=== PATIENT | female | born 1990 ===

== ENCOUNTER 2019-03-21 05:15 | Inpatient (IN) | payer OTHER ==
[2019-03-21 07:11] LABS: BASO % 0.2 % (0-2.0); EOS % 0.1 % (0-4.5); HEMATOCRIT 34.5 % (32.4-45.2); HEMOGLOBIN 11.5 GM/dL (10.7-15.3); LYMPH % 11.8 % (8-40); MCH 29.9 pg (25.7-33.7); MCHC 33.4 g/dl (32.0-36.0); MEAN CELL VOLUME 89.6 fl (80-96); MEAN PLT VOLUME 9.7 fl (7.5-11.1); MONO % 4.8 % (3.8-10.2); NEUT % 83.1 % (42.8-82.8); PLATELET COUNT 271 K/MM3 (134-434); RBC 3.86 M/mm3 (3.60-5.2); WHITE BLOOD COUNT 13.5 K/mm3 (4.0-10.0)
[2019-03-21 07:25] LABS: INR 0.92 (0.83-1.09); PROTHROMBIN TIME (PATIENT) 10.8 SEC (9.7-13.0)
[2019-03-21 07:28] LABS: ACTIVATED PTT 28.9 SECONDS (25.2-36.5)
[2019-03-21 07:29] VITALS: BMI 24.9
[2019-03-21 08:15] LABS: BLOOD UREA NITROGEN 8.5 mg/dL (7-18); CALCIUM 8.8 mg/dL (8.5-10.1); CREATININE 0.5 mg/dL (0.55-1.3); POTASSIUM 4.2 mmol/L (3.5-5.1)
--- NOTE | 2019-03-21 08:39 | HP ---
Past Medical History - Primary Care Physician PCP:: Miguel Akers - Admission Chief Complaint: 39 weeks , labor History of Present Illness: 29 yo f g 1 p0000 39 weeks, care in [facility] care , no complication c/o contraction, no rom, no bleeding, no fever GBS negative History Source: Patient Limitations to Obtaining History: No Limitations - Past Medical History ...: 1 ...Para: 0 ...Term: 0 ...: 0 ...Spon : 0 ...Induced : 0 ...Multiple Gestation: 0 ...LMP: 05/19/18 ...EDC by Dates: 02/23/19 ...EDC by Sono: 03/23/19 - Past Surgical History Hx Myomectomy: No Hx Transabdominal Cerclage: No - Smoking History Smoking history: Never smoked Have you smoked in the past 12 months: No - Alcohol/Substance Use Hx Alcohol Use: No History of Substance Use: reports: None - Social History Usual Living Arrangement: Yes: With Spouse History of Recent Travel: No Home Medications - Allergies Allergies/Adverse Reactions: Allergies Allergy/AdvReac Type Severity Reaction Status Date / Time No Known Allergies Allergy Verified 03/21/19 07:48 - Home Medications Home Medications: Ambulatory Orders Iron 325 mg PO BID 03/21/19 Pnv 29-1 Tablet 1 tab PO DAILY 03/21/19 Review of Systems - Review of Systems Constitutional: reports: No Symptoms Eyes: reports: No Symptoms HENT: reports: No Symptoms Neck: reports: No Symptoms Cardiovascular: reports: No Symptoms Respiratory: reports: No Symptoms Gastrointestinal: reports: No Symptoms Genitourinary: reports: No Symptoms Breasts: reports: No Symptoms Reported Musculoskeletal: reports: No Symptoms Integumentary: reports: No Symptoms Neurological: reports: No Symptoms Endocrine: reports: No Symptoms Hematology/Lymphatic: reports: No Symptoms Psychiatric: reports: No Symptoms Physical Exam - Maternity Vital Signs: Vital Signs Temperature 97.9 F 03/21/19 06:10 Pulse Rate 89 03/21/19 06:10 Respiratory Rate 20 03/21/19 06:10 Blood Pressure 107/66 03/21/19 06:10 O2 Sat by Pulse Oximetry (%) Constitutional: Yes: Well Nourished, No Distress, Calm Eyes: Yes: WNL, Conjunctiva Clear, EOM Intact HENT: Yes: WNL, Atraumatic, Normocephalic Neck: Yes: WNL, Supple, Trachea Midline Cardiovascular: Yes: WNL, Regular Rate and Rhythm Breast(s): Yes: WNL - Abdominal Exam/OB Fundal Height: 38 Number of Fetuses: Single Presentation: Vertex Contractions: Yes Regularity: Regular Intensity: Mod/Strong Monitor Mode: External Heart Rate Location: [facility] Category: I Accelerations: Non-Uniform Decelerations: None - Vaginal Exam/OB Vaginal Bleediing: No Speculum Exam: No Dilatation (cm): 4 cm Effacement (%): 100 Amniotic Membrane Status: Bulging Presentation: Vertex/Position Station: -2 - Physical Exam Musculoskeletal: Yes: WNL Extremities: Yes: WNL Edema: LLE: Trace, RLE: Trace Deep Tendon Reflex Grade: Normal +2 Psychiatric: Yes: Alert - Labs Lab Results: CBC, BMP 03/21/19 06:55 03/21/19 06:55 Hemorrhage Risk Assessment - Risk Factors Medium Risk Factors: Yes: None High Risk Factors: Yes: None Risk Score: 1 Risk Level: Medium Risk Problem List - Problems (1) with 39 completed weeks gestation Code(s): Z3A.39 - 39 WEEKS GESTATION OF (2) Labor established Code(s): LXM2445 - Assessment/Plan admit for vaginal delivery pain management
--- NOTE | 2019-03-21 08:41 | PN ---
Progress Note (short form) - Note Progress Note: cx 4 cm 100 vx -2 mi , arom ,light meconium AF , fhr cat 1, regular contraction , wants epidural Problem List - Problems (1) with 39 completed weeks gestation Code(s): Z3A.39 - 39 WEEKS GESTATION OF (2) Labor established Code(s): SFA8143 -
[2019-03-21] MEDS ORDERED: DEXTROSE 5%-LACTATED RINGERS 1,000 ML IV SCH ×2 (09:00→15:15)
[2019-03-21] MEDS ORDERED: ELECTROLYTE-148 SOLN 1,000 ML IV SCH (09:00)
[2019-03-21] MEDS ORDERED: FENTANYL/BUPIVACAINE/NS/PF - PCEA - 50 ML DISP.SYRIN EP ONE (09:02)
[2019-03-21] MEDS ORDERED: ePHEDrine SULFATE 50 MG/1 ML AMPULE ONE (09:11)
[2019-03-21] MEDS ORDERED: LIDO 2%/EPI 1:200000 PRESRVFRE (20 ML SDVIAL) ONE ×2 (09:48→14:15)
[2019-03-21] MEDS ORDERED: BUPIVACAINE HCL/PF 2.5 MG/ML - 30 ML VIAL IJ ONE ×2 (09:48→13:42)
--- NOTE | 2019-03-21 10:50 | CONSULT ---
Past Medical History, Laborist - Primary Care Physician PCP:: Miguel Akers - Admission Chief Complaint: Bradykardia in labor; emergency consult. History of Present Illness: First baby, 39 wks 5 days. Epidural introduced, no hypotension. Bradykardia for about 7 minutes with recovery on O2 and change im position. EDC 03.23.19. GBS neg. 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 Cardio/Vascular: Denies/None Pulmonary: Denies/None Gastrointestinal: Denies/None Hepatobiliary: Denies/None Renal/: Denies/None Reproductive: Denies/None ...: 1 ...Para: 0 ...Term: 0 ...: 0 ...Spon : 0 ...Induced : 0 ...Multiple Gestation: 0 ...LMP: 05/19/18 ...EDC by Dates: 02/23/19 ...EDC by Sono: 03/23/19 Heme/Onc: Denies/None Infectious Disease: Denies/None Psych: Denies/None Musculoskeletal: Denies/None Rheumatology: Denies/None ENT: Denies/None Dermatology: Denies/None - Past Surgical History Past Surgical History: Yes: None - Smoking History Smoking history: Never smoked Have you smoked in the past 12 months: No - Alcohol/Substance Use Hx Alcohol Use: No History of Substance Use: reports: None - Social History Usual Living Arrangement: With Spouse History of Recent Travel: No Review of Systems - Review of Systems Constitutional: reports: No Symptoms Eyes: reports: No Symptoms HENT: reports: No Symptoms Neck: reports: No Symptoms Cardiovascular: reports: No Symptoms Respiratory: reports: No Symptoms Gastrointestinal: reports: No Symptoms Genitourinary: reports: No Symptoms Breasts: reports: No Symptoms Reported Musculoskeletal: reports: No Symptoms Integumentary: reports: No Symptoms Neurological: reports: No Symptoms Endocrine: reports: No Symptoms Hematology/Lymphatic: reports: No Symptoms Psychiatric: reports: No Symptoms Physical Exam - Maternity Vital Signs: Vital Signs Temperature 98.0 F 03/21/19 08:38 Pulse Rate 78 03/21/19 08:38 Respiratory Rate 20 03/21/19 08:38 Blood Pressure 128/74 03/21/19 08:38 O2 Sat by Pulse Oximetry (%) Constitutional: Yes: Well Nourished, No Distress, Calm Eyes: Yes: WNL, Conjunctiva Clear, EOM Intact HENT: Yes: WNL, Atraumatic, Normocephalic Neck: Yes: WNL, Supple, Trachea Midline Cardiovascular: Yes: WNL, Regular Rate and Rhythm Breast(s): Yes: WNL - Abdominal Exam/OB Fundal Height: 38 Number of Fetuses: Single Presentation: Vertex Contractions: Yes Regularity: Regular Intensity: Moderate Monitor Mode: External Heart Rate (range): 130 Accelerations: Non-Uniform Decelerations: Prolonged - Vaginal Exam/OB Vaginal Bleediing: No Speculum Exam: No Dilatation (cm): 3 Effacement (%): 70 Amniotic Membrane Status: Ruptured Amniotic Fluid: Yes: Clear Presentation: Vertex/Position Station: -2 - Physical Exam Musculoskeletal: Yes: WNL Extremities: Yes: WNL Integumentary: Yes: WNL ...Motor Strength: WNL Psychiatric: Yes: WNL - Labs Lab Results: CBC, BMP 03/21/19 06:55 03/21/19 06:55 Problem List - Problems (1) bradycardia during labor Code(s): [id number] - (2) Labor established Code(s): QHA1420 - (3) with 39 completed weeks gestation Code(s): Z3A.39 - 39 WEEKS GESTATION OF Assessment/Plan Term gestation in labor. Labor well established. Epidural in place. HTN WNL. Bradykardia x 7 min. down to 90 bpm. Recovered with change of position. INTERNAL LEAD PLACED WITHOUT DIFFICULTIES.. FH cat. 2 after placement of internal lead. Plan: Continue w labor. Observe FH closely.
[2019-03-21] MEDS ORDERED: NALOXONE HCL 0.4 MG/ML VIAL IVPUSH PRN (10:53)
[2019-03-21] MEDS ORDERED: FENTANYL/BUPIVACAINE/NS/PF - PCEA - 50 ML DISP.SYRIN EP SCH ×2 (11:00→11:06)
[2019-03-21] MEDS ORDERED: OXYTOCIN 30 UNITS in 0.9% NS 30 UNIT/500 ML INFUS.BAG IVPB SCH (13:00)
[2019-03-21] MEDS ORDERED: CITRIC ACID/SODIUM CITRATE 30 ML UNIT-DOSE CUP PO ONE (14:15)
--- NOTE | 2019-03-21 14:20 | PN ---
Progress Note (short form) - Note Progress Note: cx 4 cm 80 vx -2 , meconium AF , had yessi for 1 min rate 70 , no cervical changes advised c/s, risks discussled , ulternatives explained Problem List - Problems (1) with 39 completed weeks gestation Code(s): Z3A.39 - 39 WEEKS GESTATION OF (2) Labor established Code(s): UCS2623 -
[2019-03-21] MEDS ORDERED: ceFAZolin SODIUM 1 GM VIAL ONE (14:24)
[2019-03-21] MEDS ORDERED: morphine SULFATE/PF 0.5 MG/ML (2cc Syringe - QUVA) ONE ×3 (14:33)
--- NOTE | 2019-03-21 15:05 | PN ---
Progress Note (short form) - Note Progress Note: I assisted Dr. Akers at primary c/section for the entirety of the case. Problem List - Problems (1) bradycardia during labor Code(s): UXD4805 - (2) Labor established Code(s): MBX0269 - (3) with 39 completed weeks gestation Code(s): Z3A.39 - 39 WEEKS GESTATION OF
[2019-03-21] MEDS ORDERED: morphine SULFATE/PF 0.5 MG/ML (2cc Syringe - QUVA) EP ONE (15:06)
[2019-03-21] MEDS ORDERED: ONDANSETRON 4 MG/2 ML VIAL IVPUSH PRN (15:06)
[2019-03-21] MEDS ORDERED: oxyCODONE HCL 5 MG TABLET PO PRN ×2 (15:09)
[2019-03-21] MEDS ORDERED: METHYLERGONOVINE MALEATE 0.2 MG/1 ML AMP IM PRN (15:09)
[2019-03-21] MEDS ORDERED: WITCH HAZEL 50% (TUCKS) 40 PAD/JAR PAD TP PRN (15:09)
[2019-03-21] MEDS ORDERED: BENZOCAINE 28 GM HEMORRHOIDAL OINTMENT PR PRN (15:09)
[2019-03-21] MEDS ORDERED: IBUPROFEN 800 MG/8 ML IJ IVPB PRN (15:09)
[2019-03-21] MEDS ORDERED: diphenhydrAMINE HCL 25 MG CAPSULE (FP) PO PRN (15:09)
[2019-03-21] MEDS ORDERED: BENZOCAINE 20% 57 GM BOTTLE TP PRN (15:09)
[2019-03-21] MEDS ORDERED: KETOROLAC TROMETHAMINE 30 MG/1 ML VIAL ONE (15:11)
--- NOTE | 2019-03-21 15:14 | OP ---
Operative Note - Note: Operative Date: 03/21/19 Pre-Operative Diagnosis: 39 weeks, labor, meconium AF, non reassuring FHr Operation: primary LST c/s Findings: live baby girl 11/29 , meconium aF . rop Surgeon: Miguel Akers Medical Imaging Tech: Orestes Bragg Anesthesia: Epidural Specimens Removed: placenta Estimated Blood Loss (mls): 500 Drains & Tubes with Location: bills Blood Volume Replaced (mls): 0 Operative Report Dictated: Yes
[2019-03-21] MEDS ORDERED: OXYTOCIN 20 UNITS in 0.9% NS 20 UNIT/1,000 ML INFUS.BAG IV SCH (15:15)
[2019-03-21] MEDS ORDERED: OXYTOCIN 20 UNITS in 0.9% NS 20 UNIT/1,000 ML INFUS.BAG IV ONE (16:24)
[2019-03-21] MEDS: CEFAZOLIN 1 GM/D5W 1 GM/50 ML BAG IVPB SCH (18:29)
[2019-03-22] MEDS: CEFAZOLIN 1 GM/D5W 1 GM/50 ML BAG IVPB SCH (01:12)
--- NOTE | 2019-03-22 06:22 | PN ---
Post Progress Note - Subjective Subjective: Patient is doing well, not yet ambulating and bills in place, breast feeding Type of Delivery: Primary C/S Vital Signs: Vital Signs Temperature 98.7 F 03/22/19 06:00 Pulse Rate 86 03/22/19 06:00 Respiratory Rate 20 03/22/19 06:00 Blood Pressure 96/52 L 03/22/19 06:00 O2 Sat by Pulse Oximetry (%) 99 03/21/19 14:00 Breast Exam: Yes: Other (deferred) Uterus: Yes: Fundus Firm Incision: Yes: Dressing dry and intact (removed), Sutures intact Abdomen/GI: Yes: Abdomen soft Lochia, amount: Small Extremities: Yes: Calves non-tender Perineum: Yes: Intact Activity: Other - Labs Labs: CBC WBC 13.5 K/mm3 (4.0-10.0) H 03/21/19 06:55 RBC 3.86 M/mm3 (3.60-5.2) 03/21/19 06:55 Hgb 11.5 GM/dL (10.7-15.3) 03/21/19 06:55 Hct 34.5 % (32.4-45.2) 03/21/19 06:55 MCV 89.6 fl (80-96) 03/21/19 06:55 MCH 29.9 pg (25.7-33.7) 03/21/19 06:55 MCHC 33.4 g/dl (32.0-36.0) 03/21/19 06:55 RDW 14.0 % (11.6-15.6) 03/21/19 06:55 Plt Count 271 K/MM3 (134-434) 03/21/19 06:55 MPV 9.7 fl (7.5-11.1) 03/21/19 06:55 Absolute Neuts (auto) 11.3 K/mm3 (1.5-8.0) H 03/21/19 06:55 Neutrophils % 83.1 % (42.8-82.8) H 03/21/19 06:55 Lymphocytes % 11.8 % (8-40) 03/21/19 06:55 Monocytes % 4.8 % (3.8-10.2) 03/21/19 06:55 Eosinophils % 0.1 % (0-4.5) 03/21/19 06:55 Basophils % 0.2 % (0-2.0) 03/21/19 06:55 Nucleated RBC % 0 % (0-0) 03/21/19 06:55 Assessment/Plan POD # 1 in stable condition. Post-op and PP precautions discussed -Continue inpatient management -Encourage ambulation -Anticipate D/C on POD # 3
[2019-03-22 08:22] LABS: BASO % 0.4 % (0-2.0); EOS % 0.1 % (0-4.5); HEMATOCRIT 29.9 % (32.4-45.2); HEMOGLOBIN 10.1 GM/dL (10.7-15.3); MCH 30.4 pg (25.7-33.7); MCHC 33.8 g/dl (32.0-36.0); MEAN CELL VOLUME 89.8 fl (80-96); MEAN PLT VOLUME 9.7 fl (7.5-11.1); MONO % 5.1 % (3.8-10.2); NEUT % 83.4 % (42.8-82.8); PLATELET COUNT 204 K/MM3 (134-434); RBC 3.33 M/mm3 (3.60-5.2); WHITE BLOOD COUNT 13.9 K/mm3 (4.0-10.0)
[2019-03-22] MEDS: SIMETHICONE 80 MG TAB.CHEW (FP) PO PRN ×2 (09:04→17:41)
[2019-03-22] MEDS: IBUPROFEN 600 MG TABLET (FP) PO PRN ×2 (09:04→17:41)
[2019-03-22] MEDS: ACETAMINOPHEN 325 MG TABLET (FP) PO PRN ×2 (09:05→17:42)
--- NOTE | 2019-03-22 09:18 | PN ---
Progress Note (short form) - Note Progress Note: Patient Seen. Doing well on POD#1 after . No complaints. No obvious anesthesia complications.
--- NOTE | 2019-03-22 13:58 | OP ---
DATE OF OPERATION: 03/21/2019 PREOPERATIVE DIAGNOSIS: at 39 weeks labor, rupture of membrane, meconium in amniotic fluid, nonreassuring heart rate. POSTOPERATIVE DIAGNOSIS: at 39 weeks labor, rupture of membrane, meconium in amniotic fluid, nonreassuring heart rate. PROCEDURE: Primary low segment transverse section. SURGEON: Thao Akers MD. COMMUNICATIONS DEPARTMENT CHAIR: Orestes Bragg MD. ANESTHESIA: Epidural. ANESTHESIOLOGIST: Toño Horowitz MD. ESTIMATED BLOOD LOSS: 500 mL. OPERATION: Patient was taken to operating room had adequate epidural anesthesia. Abdomen and perineum were prepped and draped. Pfannenstiel abdominal skin incision was made. Abdominal wall was cut layer by layer until the peritoneum was exposed and incised. Upon entering the abdominal cavity, the lower uterine segment was identified, and uterovesical fold of the peritoneum was established. The bladder was pushed down. Then with the lower blade of the [place] retractor in the pelvis, a low transverse uterine incision was made. Amniotic sac was entered. Meconium in amniotic fluid noted. Incision extended laterally with bandage scissors. Then head delivered occiput posterior position. Nasopharynx was suctioned. A live baby girl was delivered. Apgars 9 and 9. Placenta was delivered manually. Uterine cavity was cleared of all remaining tissue. Uterine incision was closed in 2 layers, the 1st layer with 0 Biosyn continuous suture, the 2nd layer with 0 Biosyn imbricating the 1st layer. Bladder flap was closed with 0 Biosyn continuous suture. Both tubes and ovaries were checked and were normal. No active bleeding was seen. All the lap, sponge, and instrument counts were correct. Peritoneum was closed with 0 Biosyn continuous suture. Muscles were brought together with interrupted suture with 0 Biosyn. Subcutaneous fat, interrupted suture of 0 Biosyn. The skin was closed with 3-0 Vicryl subcuticular continuous suture. The patient tolerated the procedure well and left the OR in good condition. THAO AKERS M.D. [id number]
[2019-03-22] MEDS ORDERED: BISACODYL 10 MG SUPP.RECT RC PRN (15:10)
[2019-03-23] MEDS: SIMETHICONE 80 MG TAB.CHEW (FP) PO PRN ×3 (04:24→20:00)
[2019-03-23] MEDS: IBUPROFEN 600 MG TABLET (FP) PO PRN ×3 (04:24→20:00)
[2019-03-23] MEDS: ACETAMINOPHEN 325 MG TABLET (FP) PO PRN ×3 (04:25→20:01)
--- NOTE | 2019-03-23 07:50 | PN ---
Post Progress Note - Subjective Subjective: c/o pain scale 7/10 voiding without difficulty Post Day: 2 Type of Delivery: Primary C/S Vital Signs: Vital Signs Temperature 98.2 F 03/22/19 19:47 Pulse Rate 90 03/22/19 19:47 Respiratory Rate 20 03/22/19 19:47 Blood Pressure 114/69 03/22/19 19:47 O2 Sat by Pulse Oximetry (%) 99 03/21/19 14:00 Breast Exam: Yes: Soft, Other (BF). No: Engorged Uterus: Yes: Fundus Firm, Fundus below umbilicus, Non-tender Incision: Yes: Sutures intact (steri strips intact blood stained). No: Redness , Oozing Abdomen/GI: Yes: Abdomen soft, Passing flatus (BM not done ), Tolerating PO ( diet). No: Abdominal Distention, Tender Lochia: Yes: Rubra Lochia, amount: Moderate Extremities: Yes: Calves non-tender Perineum: Yes: Intact Activity: Ambulating - Labs Labs: CBC WBC 13.9 K/mm3 (4.0-10.0) H 03/22/19 07:56 RBC 3.33 M/mm3 (3.60-5.2) L 03/22/19 07:56 Hgb 10.1 GM/dL (10.7-15.3) L 03/22/19 07:56 Hct 29.9 % (32.4-45.2) L 03/22/19 07:56 MCV 89.8 fl (80-96) 03/22/19 07:56 MCH 30.4 pg (25.7-33.7) 03/22/19 07:56 MCHC 33.8 g/dl (32.0-36.0) 03/22/19 07:56 RDW 14.0 % (11.6-15.6) 03/22/19 07:56 Plt Count 204 K/MM3 (134-434) D 03/22/19 07:56 MPV 9.7 fl (7.5-11.1) 03/22/19 07:56 Absolute Neuts (auto) 11.6 K/mm3 (1.5-8.0) H 03/22/19 07:56 Neutrophils % 83.4 % (42.8-82.8) H 03/22/19 07:56 Lymphocytes % 11.0 % (8-40) 03/22/19 07:56 Monocytes % 5.1 % (3.8-10.2) 03/22/19 07:56 Eosinophils % 0.1 % (0-4.5) 03/22/19 07:56 Basophils % 0.4 % (0-2.0) 03/22/19 07:56 Nucleated RBC % 0 % (0-0) 03/22/19 07:56 Problem List - Problems (1) Status post section routine follow-up Code(s): Z39.2 - ENCOUNTER FOR ROUTINE FOLLOW-UP; Z98.891 - HISTORY OF UTERINE SCAR FROM PREVIOUS SURGERY Assessment/Plan stable Plan ct po care
[2019-03-23] MEDS ORDERED: SENNOSIDES/DOCUSATE COMBO (SENNA PLUS) TABLET (UD) PO PRN (22:00)
[2019-03-24 08:03] LABS: BASO % 0.6 % (0-2.0); EOS % 1.4 % (0-4.5); HEMATOCRIT 29.3 % (32.4-45.2); HEMOGLOBIN 9.8 GM/dL (10.7-15.3); LYMPH % 17.9 % (8-40); MCH 30.3 pg (25.7-33.7); MCHC 33.4 g/dl (32.0-36.0); MEAN CELL VOLUME 90.8 fl (80-96); MEAN PLT VOLUME 9.7 fl (7.5-11.1); MONO % 5.7 % (3.8-10.2); NEUT % 74.4 % (42.8-82.8); PLATELET COUNT 237 K/MM3 (134-434); RBC 3.23 M/mm3 (3.60-5.2); WHITE BLOOD COUNT 9.9 K/mm3 (4.0-10.0)
--- NOTE | 2019-03-24 09:14 | PN ---
Post Progress Note - Subjective Subjective: Pain controlled. Tolerating PO. No N/V. Ambulating. Voiding freely. Post Day: 3 Type of Delivery: Primary C/S Vital Signs: Vital Signs Temperature 98.6 F 03/23/19 21:29 Pulse Rate 92 H 03/23/19 21:29 Respiratory Rate 18 03/23/19 21:29 Blood Pressure 114/73 03/23/19 21:29 O2 Sat by Pulse Oximetry (%) 99 03/21/19 14:00 Uterus: Yes: Fundus below umbilicus Incision: Yes: Dressing dry and intact, Sutures intact Abdomen/GI: Yes: Passing flatus, Tolerating PO Lochia: Yes: Rubra Lochia, amount: Small Extremities: Yes: Calves non-tender - Labs Labs: CBC WBC 9.9 K/mm3 (4.0-10.0) 03/24/19 07:25 RBC 3.23 M/mm3 (3.60-5.2) L 03/24/19 07:25 Hgb 9.8 GM/dL (10.7-15.3) L 03/24/19 07:25 Hct 29.3 % (32.4-45.2) L 03/24/19 07:25 MCV 90.8 fl (80-96) 03/24/19 07:25 MCH 30.3 pg (25.7-33.7) 03/24/19 07:25 MCHC 33.4 g/dl (32.0-36.0) 03/24/19 07:25 RDW 14.0 % (11.6-15.6) 03/24/19 07:25 Plt Count 237 K/MM3 (134-434) 03/24/19 07:25 MPV 9.7 fl (7.5-11.1) 03/24/19 07:25 Absolute Neuts (auto) 7.4 K/mm3 (1.5-8.0) 03/24/19 07:25 Neutrophils % 74.4 % (42.8-82.8) 03/24/19 07:25 Lymphocytes % 17.9 % (8-40) D 03/24/19 07:25 Monocytes % 5.7 % (3.8-10.2) 03/24/19 07:25 Eosinophils % 1.4 % (0-4.5) D 03/24/19 07:25 Basophils % 0.6 % (0-2.0) 03/24/19 07:25 Nucleated RBC % 0 % (0-0) 03/24/19 07:25 Assessment/Plan 29yo s/p PLTCS, POD#3 Stable, doing well Labs reviewed, normal Routine PP care OOB, ambulate D/C to home by POD#4 by patient request, although stable today for discharge Qamar Araujo MD
[2019-03-24] MEDS: IBUPROFEN 600 MG TABLET (FP) PO PRN ×2 (12:55→21:50)
[2019-03-24] MEDS: ACETAMINOPHEN 325 MG TABLET (FP) PO PRN ×2 (12:55→21:50)
[2019-03-24] MEDS: SIMETHICONE 80 MG TAB.CHEW (FP) PO PRN ×2 (12:55→21:50)
--- NOTE | 2019-03-25 07:40 | DS ---
Physical Exam-GUT PULLER Vital Signs: Vital Signs Temperature 98.5 F 03/24/19 21:07 Pulse Rate 71 03/24/19 21:07 Respiratory Rate 20 03/24/19 21:07 Blood Pressure 117/63 03/24/19 21:07 O2 Sat by Pulse Oximetry (%) 99 03/21/19 14:00 Constitutional: Yes: Well Nourished, No Distress, Calm Eyes: Yes: WNL, Conjunctiva Clear, EOM Intact HENT: Yes: WNL, Atraumatic, Normocephalic Neck: Yes: WNL, Supple, Trachea Midline Cardiovascular: Yes: WNL, Regular Rate and Rhythm Respiratory: Yes: WNL, Regular, CTA Bilaterally Gastrointestinal: Yes: WNL ...Rectal Exam: Yes: WNL Renal/: Yes: WNL ....Post : Yes: Uterus firm, Uterus non-tender, Slight lochia rubra Breast(s): Yes: WNL Musculoskeletal: Yes: WNL Extremities: Yes: WNL Integumentary: Yes: WNL Wound/Incision: Yes: Clean/Dry, Well Approximated, Sutures Intact Neurological: Yes: WNL, Alert, Oriented ...Motor Strength: WNL Psychiatric: Yes: WNL, Alert, Oriented Labs: CBC, BMP 03/24/19 07:25 03/21/19 06:55 Delivery - Delivery Section: Primary, Low Flap Transverse Type of Anesthesia: Epidural EBL (cc): 500 Delivery, Single - Stages of Labor Date 1st Stage Initiatied: 03/21/19 Time 1st Stage Initiated: 02:00 Date of Delivery: 03/21/19 Time of Delivery: 14:35 Time Placenta Delivered: 14:36 Placenta: Yes: Expressed - Condition of Chemistry 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 Present: Yes Name: Jane Suh Gender: Female Weight: 6 lb 7.988 oz Position: Right, OP Total Hours ROM (Hrs/Mins): 6H5M - 1 Minute Total Score: 9 5 Minutes Total Score: 9 - Benedict Feeding Plan Initial Plan: Exclusive throughout hospitalization Discharge Summary Problems reviewed: Yes Reason For Visit: LABOR Current Active Problems bradycardia during labor (Acute) Labor established (Acute) with 39 completed weeks gestation (Acute) Status post section routine follow-up (Acute) Procedures: Principal: primary LST c/s Other Procedures: epidural anesthesia Hospital Course: no complication Health Concerns: anemia Plan of Treatment: iron, vit Goals: hb of 12 Condition: Good - Instructions Diet, Activity, Other Instructions: regular diet, follow up [facility] care 1 week, if fever, heavy vaginal bleeding , pain call md Referrals: Miguel Akers MD [Staff Physician] - Disposition: HOME - Home Medications Comprehensive Discharge Medication List: Ambulatory Orders Iron 325 mg PO BID 03/21/19 Pnv 29-1 Tablet 1 tab PO DAILY 03/21/19 Ibuprofen [Motrin -] 600 mg PO TID #21 tablet 03/24/19
[2019-03-25 09:09] VITALS: BP 113/62; PULSE 83; TEMP 98.2
--- NOTE | 2019-03-29 13:19 | PATH ---
Surgical Pathology Report Patient Name: GIOVANY MARTINEZ Med. Rec. #: [id number] /Age/Gender: 1990 (Age: 29) / F Account: [id number] Location: 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 Specimen(s) Received PLACENTA Clinical History Non-reassuring heart rate Final Diagnosis PLACENTA, SECTION: 373 G THIRD TRIMESTER PLACENTA WITH TRIVASCULAR UMBILICAL CORD AND PLACENTAL MEMBRANES WITH MECONIUM LADEN MACROPHAGES. Electronically Signed Martha Bustamante M.D. Gross Description The specimen is received fresh labeled placenta and is a 373 gram, 14.5 x 13.0 x 2.8 cm. placenta with attached membranes and umbilical cord. The attached membranes are zurita green, meconium stained, translucent with focal opacities and insert marginally. The umbilical cord measures 14.5 cm. in length and averages 1 cm. in diameter. The cord inserts eccentrically, 3 cm. to the nearest margin. No true knots or strictures are identified. Cut surface of the umbilical cord reveals 3 vessels. The surface is sotelo-blue with minimal fibrin deposition and appropriate caliber vessels. The maternal surface is red-brown and intact. Sectioning reveals red-brown, spongy parenchyma. No lesions are identified. Buttonhole Machine Operator sections are submitted in three cassettes as follows: 1- membrane rolls and umbilical cord; 2-3- full thickness sections of placenta. /03/28/2019 [facility]03/28/2019
== END 2019-03-25 13:30 | disposition home or self-care (01) | DRG 540 ==
LOC: JDEL 05:15 → JLDR 06:10 → J3W 17:00
PROVIDERS: ADMIT Obstetrics & Gynecology; ATTEND Obstetrics & Gynecology
PROC: 10D00Z1 Extraction of Products of Conception, Low, Open Approach (ICD-10-PCS; principal; 2019-03-21)
DX: O76 Abnormality in fetal heart rate and rhythm complicating labor and delivery (principal); O77.0 Labor and delivery complicated by meconium in amniotic fluid; Z3A.39 39 weeks gestation of pregnancy; Z37.0 Single live birth
CPT/HCPCS: 36415; 36600; 80048; 82803; 85025; 85610; 85730; 86593; 86762; 86850; 86900; 86901; 88307-TC